=== PATIENT | female | born 1965 | race Caucasian/White ===

== ENCOUNTER 2025-01-11 12:05 | Emergency (ER) | payer SELFPAY ==
[2025-01-11] MEDS ORDERED: Acetaminophen 500 MG TAB ONE (13:05)
[2025-01-11] MEDS ORDERED: Ibuprofen 800 MG TAB ONE (13:06)
== END 2025-01-11 14:11 | disposition home or self-care (01) ==
LOC: ERS 12:05
DX: S52.572A Other intraarticular fracture of lower end of left radius, initial encounter for closed fracture (principal); I10 Essential (primary) hypertension; E03.9 Hypothyroidism, unspecified; E78.5 Hyperlipidemia, unspecified; F17.210 Nicotine dependence, cigarettes, uncomplicated; W22.8XXA Striking against or struck by other objects, initial encounter; Z79.899 Other long term (current) drug therapy
CPT/HCPCS: 29105